=== PATIENT | male | born 1930 | race Caucasian/White ===

== ENCOUNTER → 2016-03-06 | Outpatient (CLI) | payer OTHER, MEDICARE | LOC: BHCLAF 11:30 | PROVIDERS: ATTEND Internal Medicine Cardiovascular Disease | DX: I42.9 Cardiomyopathy, unspecified (principal); R60.9 Edema, unspecified | CPT/HCPCS: 93306-PO ==

== ENCOUNTER → 2017-03-09 | Outpatient (CLI) | payer OTHER, MEDICARE | LOC: BHCLAF 10:00 | PROVIDERS: ATTEND Internal Medicine Cardiovascular Disease | DX: I48.91 Unspecified atrial fibrillation (principal); I35.9 Nonrheumatic aortic valve disorder, unspecified; I05.9 Rheumatic mitral valve disease, unspecified | CPT/HCPCS: 93306-PO ==

== ENCOUNTER → 2017-03-27 | Outpatient (CLI) | payer OTHER, MEDICARE | LOC: BHLMT 08:30 | PROVIDERS: ATTEND Internal Medicine Cardiovascular Disease | DX: I42.9 Cardiomyopathy, unspecified (principal); I48.0 Paroxysmal atrial fibrillation; R06.00 Dyspnea, unspecified | CPT/HCPCS: 78452; 93017; A9500; J2785 ==

== ENCOUNTER → 2017-05-10 | Outpatient (CLI) | payer OTHER, MEDICARE ==
[~2017-05-10] MED LIST: IOPAMIDOL (ISOVUE 370) 100 ML BTL IV ONE; IOPAMIDOL (ISOVUE-370) 150 ML BTL IV ONE; LIDOCAINE 1% 300 MG/30 ML SDV ONE
== END ==
LOC: FIMAGING 10:18
PROVIDERS: ATTEND Orthopaedic Surgery Hand Surgery
PROC: 3E0U3KZ Introduction of Other Diagnostic Substance into Joints, Percutaneous Approach (ICD-10-PCS; principal; 2017-05-10)
DX: M19.011 Primary osteoarthritis, right shoulder (principal); I50.9 Heart failure, unspecified; Z95.0 Presence of cardiac pacemaker
CPT/HCPCS: 23350; 73040; 73201; Q9967

== ENCOUNTER 2017-06-01 08:57 | Day surgery (SDC) | payer OTHER, MEDICARE ==
[2017-06-01] MEDS ORDERED: NS 1,000 ML IV ONE (08:59)
[2017-06-01] MEDS ORDERED: diphenhydrAMINE 25 MG CAP PO ONE (08:59)
[2017-06-01] MEDS ORDERED: FAMOTIDINE 20 MG TAB PO ONE (08:59)
[2017-06-01] MEDS ORDERED: ASPIRIN EC 325 MG TAB PO ONE (08:59)
[2017-06-01] MEDS ORDERED: DIAZEPAM 5 MG TAB PO ONE (08:59)
--- NOTE | 2017-06-01 09:22 | CPEKG ---
Heart Rate: 75 RR Interval: 800 P-R Interval: 164 QRSD Interval: 130 QT Interval: 484 QTC Interval: 541 P [place]: 0 QRS [place]: -24 T Wave [place]: 167 EKG Severity - ABNORMAL ECG - EKG Impression: ATRIAL-VENTRICULAR DUAL-PACED COMPLEXES EKG Impression: LVH WITH IVCD AND SECONDARY REPOL ABNRM Electronically Signed By: Maroc Roberts 01-Jun-2017 14:18:49
[2017-06-01 09:57] LABS: PLATELET COUNT 227 10^3/uL (150-400)
[2017-06-01 10:18] LABS: INR 1.45 (0.83-1.16); PROTIME(PATIENT) 17.8 SEC (12.0-15.0)
[2017-06-01] MEDS ORDERED: LIDOCAINE 1% 300 MG/30 ML SDV ONE (10:44)
[2017-06-01] MEDS ORDERED: IOPAMIDOL (ISOVUE-370) 150 ML BTL IV ONE (10:44)
--- NOTE | 2017-06-01 10:56 | PDPROPOC ---
Sedation Plan of Care Sedation Plan of Care: vital signs stable, mental status noted, patient educated of risks, benefits, alternatives, patient can tolerate sedation ASA Classification: ASA 2 Planned drugs: fentanyl, midazolam Mallampati Score: Class 2 Mallampati Reference Image: Patient passed 3-3-2 rule?: Yes
--- NOTE | 2017-06-01 10:59 | PDGENHP ---
History & Physical Chief Complaint: dyspnea concerning for an anginal equivelent History of Present Illness: Pt is an 87 yo, m who presents with OBRIEN concerning for an anginal equivelent. He has known CAD and an abnormal stress test. Pertinent Past, Social, Family History: No smoking Relevant Physical Exam: RRR, S1, S2, Systolic murmur c/w MR. CTA. mild lower extremity edema Cardiorespiratory Assessment: Pt has known CAD and is s/p PCI of his LAD and RCA. He presents with OBRIEN concerning for angina and an abnormal stress test.
[2017-06-01] MEDS ORDERED: MIDAZOLAM 2 MG/2 ML VIAL ONE (11:15)
[2017-06-01] MEDS ORDERED: fentaNYL 100 MCG/2 ML INJ ONE (11:15)
[2017-06-01] MEDS ORDERED: NITROGLYCERIN 0.4 MG BTL SL PRN (11:54)
[2017-06-01] MEDS ORDERED: ATROPINE SULFATE 1 MG/10 ML SYR IVP PRN (11:54)
[2017-06-01] MEDS ORDERED: ONDANSETRON 4 MG/2 ML VIAL IVP PRN (11:54)
--- NOTE | 2017-06-01 12:52 | CPIP ---
[f rep st] INVASIVE CARDIAC PROCEDURE DATE OF PROCEDURE: 06/01/2017 PROCEDURE: 1. Coronary angiography. 2. Left ventriculography. INDICATION: 1. Known coronary artery disease status post stenting of the left anterior descending coronary arter y and right coronary artery. 2. Dyspnea on exertion, concerning for an anginal equivalent. 3. Nondiagnostic stress test with inferior artifact. ACCESS: The patient was prepped and draped in sterile fashion. 1% lidocaine was used to anesthetize the right inguinal region. A 6-Fijian introducer sheath was placed selectively into the right commo n femoral artery via modified Seldinger technique. CORONARY ANGIOGRAPHY: A 6-Fijian JL4 was advanced to the left main coronary artery and images obtain ed. The left main coronary artery bifurcated into an LAD and circumflex coronary arteries. The left main coronary artery had a proximal 25% stenosis present. The left anterior descending coronary art eda was previously stented in the mid segment. The previously placed stent had mild ISR with no sten osis greater than 10% to 15%. In the mid to distal vessel, there was a long segmental 40% stenosis p resent. The left anterior descending coronary artery gave rise to 2 prominent diagonal branches. Th e diagonal branches were free of any significant disease. The circumflex coronary artery was a large vessel but was nondominant. Circumflex coronary artery had a single discrete 40% stenosis in the mi d vessel. The circumflex coronary artery gave rise to several OM branches. The first OM branch was a large branching vessel. The first OM branch had a proximal 30% stenosis present. A 6-Fijian JR4 w as advanced to the right coronary artery and images obtained. The right coronary artery had mild dif fuse disease throughout. In the mid vessel, a previously placed stent could be seen. The previously placed stent was patent with approximately 20% ISR. The right posterolateral branch had a proximal to mid 40% to 50% stenosis present. LEFT VENTRICULOGRAPHY: A 6-Fijian pigtail catheter was advanced in the left ventricle and images obt ained. Left ventricle appeared mildly dilated in size. The ejection fraction was normal at 55%. Th e left ventricular end-diastolic pressure was elevated at 23 mmHg. COMPLICATIONS: None. CONCLUSIONS: 1. Patent left anterior descending and right coronary artery stents. 2. Iocj-ry-imyymrzx coronary artery disease without flow limitation. 3. Normal left ventricular systolic function with elevated left ventricular end-diastolic pressure. PLAN: Medical management. /[id number]/MODL
== END 2017-06-01 14:51 | disposition home or self-care (01) ==
LOC: FCATH 08:57
PROVIDERS: ATTEND Internal Medicine Cardiovascular Disease
PROC: B2111ZZ Fluoroscopy of Multiple Coronary Arteries using Low Osmolar Contrast (ICD-10-PCS; principal; 2017-06-01)
DX: I25.119 Atherosclerotic heart disease of native coronary artery with unspecified angina pectoris (principal); Z95.5 Presence of coronary angioplasty implant and graft
CPT/HCPCS: C1760; J1644; J2250; J3010; Q9967

== ENCOUNTER 2018-05-17 06:49 | Day surgery (SDC) | payer OTHER, MEDICARE ==
[2018-05-17] MEDS ORDERED: fentaNYL 100 MCG/2 ML INJ IVP ONE (06:52)
[2018-05-17] MEDS ORDERED: BENZOCAINE UNIT DOSE SPRAY HURRICAINE MM ONE (06:52)
[2018-05-17] MEDS ORDERED: NS 500 ML IV ONE (06:52)
[2018-05-17] MEDS ORDERED: MIDAZOLAM 2 MG/2 ML VIAL IVP ONE (06:52)
[2018-05-17] MEDS ORDERED: ATROPINE SULFATE 1 MG/10 ML SYR IVP ONE (06:52)
[2018-05-17 07:39] LABS: INR 2.11 (0.83-1.16); PROTIME(PATIENT) 22.6 SEC (12.0-15.0)
--- NOTE | 2018-05-17 08:26 | PDPROPOC ---
Sedation Plan of Care Sedation Plan of Care: mental status noted, patient educated of risks, benefits , alternatives, patient can tolerate sedation ASA Classification: ASA 3 Planned drugs: other Mallampati Score: Class 3 Mallampati Reference Image: Patient passed 3-3-2 rule?: Yes
--- NOTE | 2018-05-17 08:26 | PDHPUP ---
History & Physical Update H&P update statement: This history and physical update is based on an assessment of the patient which was completed after admission or registration (within 24 hours), but prior to the surgery/procedure. H&P update: H&P reviewed & patient examined, no change in patient's condition since H&P completed (OBRIEN at 4 blocks. No CP or syncope.)
--- NOTE | 2018-05-17 08:31 | PDANEPAE ---
ANE History of Present Illness here for ROSEMARY/CV ANE Past Medical History - Cardiovascular History Hx Hypertension: Yes Hx Arrhythmias: Yes Hx Chest Pain: No Hx Coronary Artery / Peripheral Vascular Disease: Yes Hx CHF / Valvular Disease: No Hx Palpitations: No - Pulmonary History Hx COPD: No Hx Asthma/Reactive Airway Disease: No Hx Recent Upper Respiratory Infection: No Hx Oxygen in Use at Home: No Hx Sleep Apnea: No - Neurologic History Hx Cerebrovascular Accident: No Hx Seizures: No - Endocrine History Hx Diabetes: No Hypothyroid: No Hyperthyroid: No Obesity: no - Liver History Hx Hepatic Disorders: No ANE Review of Systems Review of systems is: negative Review of Systems: - Exercise capacity Exercise capacity: <4 METS ANE Patient History - Allergies Allergies/Adverse Reactions: No Known Allergies Allergy (Unverified 03/04/11 13:24) - Home Medications Home medications: home medication list seen and reviewed Home Medications: Aspirin [Aspirin 81mg (*)] 81 mg PO DAILY 06/25/13 [Last Taken 05/17/18] Omeprazole [Prilosec 20 mg] 20 mg PO DAILY 06/25/13 [Last Taken 05/17/18] Simvastatin 40 mg PO DAILY18 06/25/13 [Last Taken 05/16/18] Warfarin Sodium [Coumadin 5MG (*)] 5 mg PO SUTUTHSA@16 06/25/13 [Last Taken ] C/E/Zn/Cu/OM3/DHA/EPA/LUT/ZEAX [Preservision Areds 2 Softgel] 1 each PO DAILY [Last Taken 05/16/18] Furosemide [Lasix 20 MG (*)] 20 mg PO DAILY 05/25/17 [Last Taken 05/16/18] Warfarin Sodium [Coumadin 7.5MG (*)] 7.5 mg PO MWF@16 05/25/17 [Last Taken 05/28 16:00] - NPO status NPO Status: no food or drink >8 hours - Smoking Hx Smoking Status: Never smoked ANE Labs/Vital Signs - Labs Result Diagrams: 05/17/18 07:15 - Vital Signs Height: 183 cm Weight: 88.5 kg ANE Physical Exam - Airway Neck exam: FROM Mallampati Score: Class 1 - Pulmonary Pulmonary: no respiratory distress - Cardiovascular Cardiovascular: irregularly irregular - ASA Status ASA Status: III ANE Anesthesia Plan Anesthesia Plan: GA with mask
[2018-05-17] MEDS ORDERED: PROPOFOL/EMULSION 500 MG/50 ML BOTTLE IV ONE (08:36)
--- NOTE | 2018-05-17 09:02 | PDTEE1 ---
ROSEMARY Cardioversion Procedure Procedure: electrical cardioversion, transesophageal echo Indications: atrial fibrillation Consent: signed and in chart Anticoagulation: warfarin Procedural Details: Pads were placed in anterior-posterior position. ROSEMARY probe was advanced and standard images obtained. There is no evidence of left atrial or left atrial appendage thrombus. Synchronized cardioversion attempt #1: other (250 synchronized joules) Results: normal sinus rhythm Conclusions: successful ROSEMARY cardioversion Patient Problems: Problems Problem Status Onset Cardiomyopathy Acute Complete heart block Acute Heart block Acute
--- NOTE | 2018-05-17 09:09 | POSTANESTH ---
Post Anesthetic Evaluation Cardiovascular Status: Normal, Stable Respiratory Status: Normal, Stable Level of Consciousness/Mental Status: Can Participate in Eval Pain Control: Adequate, Prn Tx Ordered Nausea/Vomiting Control: Adequate, Prn Tx Ordered Complications Possibly Related to Anesthesia: None Noted
--- NOTE | 2018-05-17 10:16 | CPR ---
[f rep st] NONINVASIVE CARDIAC PROCEDURE REPORT DATE OF PROCEDURE: 05/17/2018 PROCEDURE PERFORMED: Electrical cardioversion. INDICATIONS: Atrial fibrillation with diastolic heart failure and fatigue and shortness of breath. CONSENT: Signed. Risks, benefits, and alternatives discussed with patient and his . He wishes to proceed. TECHNICAL DIFFICULTIES: None. MEDICATIONS USED: Propofol 150 mg IV per Anesthesia Service in conjunction with transesophageal echo immediately beforehand which demonstrated no evidence of cardiac thrombus. DESCRIPTION OF PROCEDURE AND RESULTS: The patient has a pacemaker chronically. His initial rhythm w as paced at 70 beats per minute with a blood pressure of 120/70. The pacemaker rep was here and inte rrogated his rhythm beforehand and he was in atrial fibrillation. With adequate sedation, he receive d a 250 joule synchronized shock with AP pads. This converted him into a paced rhythm at 67 beats pe r minute with a blood pressure of 93/59. Interrogation of the pacemaker showed he was now in sinus r hythm. He awoke from sedation with no new neurological deficits. FINAL IMPRESSIONS: 1. Successful cardioversion of atrial fibrillation to sinus rhythm with a single 250 joule synchroni zed shock. 2. Patient looks like he has diuresed quite a bit and might be a little prerenal now. Will decrease his Lasix to 60 mg q.a.m. with no afternoon dose. 3. Rest of medications without change. 4. He is scheduled to see his long-term clinic brick carrier, Pablo Mariscal MD, next Sunday. COMPLICATIONS: None. /[id number]/MODL
--- NOTE | 2018-05-17 11:47 | ECHO ---
[email or web address] [email or web address] [id number] Main: [phone] Echocardiography Examination Transesophageal Name: JERRICA CURTIS MR#: [id number] Study Date: 05/17/2018 Study Time: 08:00 AM Date of : 1930 Age: 88 year(s) Height: ( ) Weight: ( ) BSA: Gender: Male Examination: ROSEMARY Contrast: Image Quality: Adequate Rhythm: Heart Rate: BP: / Indication: Eval STAN Pre Cardioversion Procedure Staff Referring Physician: Manager Furniture: Marian Brown RDCS Reading Physician: Jaguar Del Castillo MD Requesting Provider: Ordering Physician: Jaguar Del Castillo MD Indication: Eval STAN Pre Cardioversion Acute complication: None Measurements Chambers TV/PV Label Value Normal Value Label Value Normal Value EF lower range (%) 50 % RA Pressure 5 mmHg EF upper range (%) 55 % RVSP 29 mmHg Additional Vessels TR Pmax 24 mmHg Label Value Normal Value AoAsc 3.3 cm Conclusions Left Ventricle: ROSEMARY CONCLUSIONS:1)Normal LV size and systolic function with a LVEF of 50-55%.2)Pacer wires in right heart chambers.3)No clot seen in any of four cardiac chambers or left atrial appendage. PW velocity in STAN 35cm/sec.4)Aortic valve sclerosis without . Mild AI noted.5)Mild to moderate MR without MV prolapse.6)Mild to moderate TR with estimated normal PA pressures.7)Normal size thoracic aorta with mild plaque and no dissection flap.8)Negative IV bubble study for ASD or PFO. Findings Patient: JERRICA CURTIS Study Date: 05/17/2018 Page 1 of 2 08:00 AM Left Ventricle: ROSEMARY CONCLUSIONS: 1)Normal LV size and systolic function with a LVEF of 50-55%. 2)Pacer wires in right heart chambers. 3)No clot seen in any of four cardiac chambers or left atrial appendage. PW velocity in STAN 35cm/sec. 4)Aortic valve sclerosis without . Mild AI noted. 5)Mild to moderate MR without MV prolapse. 6)Mild to moderate TR with estimated normal PA pressures. 7)Normal size thoracic aorta with mild plaque and no dissection flap. 8)Negative IV bubble study for ASD or PFO. Right Ventricle: There is a pacing wire present in the right ventricle. Left Atrium Appendage: Good color flow doppler in the left atrial appendage. No thrombus is identified. IAS: An agitated saline study was performed and was negative for intracardiac shunting. Mitral Valve: Mitral valve appears structurally normal. Mild to moderate mitral regurgitation. Aortic Valve: Mild aortic regurgitation is present. Aortic leaflets exhibit mild calcification. Tricuspid Valve: Tricuspid valve leaflets are structurally normal. Mild to moderate tricuspid regurgitation. Right Ventricular systolic pressure is measured at 29 mmHg. Pulmonic Valve: Pulmonic leaflets are structurally normal. Trivial pulmonic valve regurgitation is present. Aorta: The ascending aorta measures 3.3 cm. Mild atheroma in the descending aorta. Exam Details Procedure Ordered: ROSEMARY Procedure Status: Routine study Image Quality: Adequate Consent: Risks, alternatives of procedure explained to patient, informed consent obtained Probe Insertion: Attending disk recordist Facility Location: Cardiac Echo 1 (No Signature Object) Patient: JERRICA CURTIS Study Date: 05/17/2018 Page 2 of 2 08:00 AM [id number]
--- NOTE | 2018-05-23 08:42 | CPEKG ---
Test Reason : OPEN Blood Pressure : / mmHG Vent. Rate : 069 BPM Atrial Rate : 000 BPM P-R Int : 077 ms QRS Dur : 130 ms QT Int : 458 ms P-R-T Axes : 000 244 077 degrees QTc Int : 491 ms Ventricular-paced complexes AV pacing was noted on prior ECG Confirmed by Pablo Salas ([id number]) on 05/23/2018 8:42:07 AM Referred By: Jaguar Del Castillo Confirmed By:Pablo Salas
== END 2018-05-17 10:00 | disposition home or self-care (01) ==
LOC: FCATH 06:49
PROVIDERS: ATTEND Internal Medicine Cardiovascular Disease
PROC: 5A2204Z Restoration of Cardiac Rhythm, Single (ICD-10-PCS; principal; 2018-05-17)
PROC: B245ZZ4 Ultrasonography of Left Heart, Transesophageal (ICD-10-PCS; principal; 2018-05-17)
DX: I48.0 Paroxysmal atrial fibrillation (principal); I25.10 Atherosclerotic heart disease of native coronary artery without angina pectoris; I10 Essential (primary) hypertension; E78.5 Hyperlipidemia, unspecified; I42.8 Other cardiomyopathies; E11.9 Type 2 diabetes mellitus without complications; Z95.1 Presence of aortocoronary bypass graft; Z95.5 Presence of coronary angioplasty implant and graft
CPT/HCPCS: J0461; J2704

== ENCOUNTER 2018-05-23 11:40 | Inpatient (IN) | payer OTHER, MEDICARE ==
[2018-05-23] MEDS ORDERED: ACETAMINOPHEN 325 MG TAB PO PRN (16:32)
[2018-05-23 17:11] LABS: PLATELET COUNT 289 10^3/uL (150-400)
[2018-05-23 17:20] LABS: INR 2.47 (0.83-1.16); PROTIME(PATIENT) 25.5 SEC (12.0-15.0)
--- NOTE | 2018-05-23 17:20 | PDCARPN ---
Cardiology Progress Note Chief Complaint: Patient reporting here for sotalol loading. Assessment/Plan: Assessment: Please see Dr. Mariscal office note dated 05/22/2018, this is to be used as patient 's official history and physical. 88-year-old male with significant past history that includes CAD with previous PCI of the LAD and RCA, hypertension, hyperlipidemia, nonischemic cardiomyopathy which has normalized with implantation of a Bi V PPM, persistent atrial fibrillation, AI and MR. Recently seen in our office for diastolic heart failure, and found to be in atrial fibrillation. Started on high-dose diuretics, with 20 lb weight loss. Echocardiogram done on 05/14/2018 noting LVEF of 55% with mild LVH, mild RV dilation, moderate left atrial enlargement and mild right atrial enlargement, keqw-mn-pqjjsjta MR with mild MAC, mild aortic insufficiency with mild stenosis and moderate sclerosis. Xbiy-fs-hcvplmfo TR, mild PI, mild dilated ascending aorta at 4.0 cm. Patient underwent ROSEMARY cardioversion on 05/17/2018. Pacemaker interrogation on 05/19/2018 demonstrating patient back in atrial fibrillation. Concerning that potential atrial fibrillation led to his diastolic heart failure , patient is being admitted for sotalol loading. Plan: 1. Persistent atrial fibrillation: Status post cardioversion that lasted for 2 days with reversion back into AFib, rate controlled on no AV jayesh agent. Potential causes of diastolic heart failure. Will plan for patient to start sotalol loading. Electrocardiogram today showing underlying rhythm of atrial fibrillation with ventricular paced beat. Occasional PVC. JT interval 280 milliseconds with a JT I of 90. Plan on starting sotalol at 80 mg p.o. Twice daily. 2 hr post dosing electrocardiograms to be done. Patient to be placed on continuous cardiac monitoring to evaluate for any malignant arrhythmias with medication introduction. If patient does not convert to sinus rhythm after 4th dose, will plan on patient having repeat cardioversion. Patient remains on anticoagulation of warfarin. 2. Coronary artery disease: Patient reports no chest pain pressure or symptoms suggesting of ischemia. Patient remains on anti-platelet therapy of aspirin, secondary risk prevention with statin therapy. 3. Diastolic heart failure: Patient recently had increase of diuretic therapy with 20 lb weight loss. He appears euvolemic on physical examination. Continue on current diuretic therapy. 4. Hyperlipidemia: Resume patient's home statin dosage. 5. Valvular heart disease: Recent echocardiogram noting moderate MR and mild AI. Patient will have a repeated echocardiogram as an outpatient 04/2019. 6. Dilated ascending aorta, measuring at 4.0 cm, repeat echocardiogram 05/15 for therapeutic monitoring. 7. Hypertension: Blood pressure appears to be well controlled on current medication regime, continue home medications. Monitor adjust as necessary 8. DVT prophylaxis: Patient is on full anticoagulation Liborio hoses have been ordered. 9. Advance directive: Patient reports he is a full code. Due to patient's significant medical history, potential risk of arrhythmias with institution of sotalol, will plan for patient to be monitor over the next 48 hr, greater than 2 midnight stays. 05/23/18 17:18 Subjective: Patient reports no chest pain, pressure, shortness of breath, lightheadedness, palpitations, near-syncope or syncopal events. Reviewed/Discussed With: other (Dr. Mariscal, Dr Hyatt) Objective: Vital Signs (8 Hrs) Temp Pulse Resp BP Pulse Ox 05/23/18 16:38 36.6 C 69 11 L 123/70 H 96 Intake/Output (24 Hrs) 05/22/18 05/23/18 05/24/18 05:59 05:59 05:59 Other: Weight 86.4 kg Result Diagrams: 05/23/18 16:55 05/23/18 16:55 - Physical Exam Constitutional: WDWN, healthy appearing Cardiovascular: regular rate and rhythm, systolic murmur (2/6 left sternal border), pulses symmetric bilat, No jugular vein distention, No carotid bruit Peripheral Pulses: 1+: dorsalis-pedis (R), dorsalis-pedis (L), 2+: carotid (R), carotid (L) Respiratory: clear to auscultate bilat, no crackles, no wheezes Gastrointestinal: normoactive bowel sounds, no tenderness, no masses Skin: warm, no edema Neurologic: AAOx3 Psychiatric: cooperative, interactive, following commands ICD10 Worksheet Patient Problems: Problems Problem Status Onset Cardiomyopathy Acute Complete heart block Acute Heart block Acute
[2018-05-23] MEDS ORDERED: MAGNESIUM SULF 1 GM/DEXTROSE 100 ML IV ONE (17:47)
[2018-05-23] MEDS: WARFARIN SODIUM 5 MG TAB PO SCH (18:26)
[2018-05-23] MEDS: ATORVASTATIN CALCIUM 20 MG TAB PO SCH (18:27)
[2018-05-23] MEDS: SOTALOL HCL 80 MG TAB PO SCH (20:49)
[2018-05-24 08:25] LABS: INR 2.53 (0.83-1.16)
[2018-05-24] MEDS ORDERED: ASPIRIN 81 MG CHEWABLE TAB PO SCH (09:00)
[2018-05-24] MEDS ORDERED: FUROSEMIDE 20 MG TAB PO SCH (09:00)
[2018-05-24] MEDS: PANTOPRAZOLE SODIUM 40 MG TAB PO SCH (09:26)
[2018-05-24] MEDS: FUROSEMIDE 20 MG TAB PO SCH (09:26)
[2018-05-24] MEDS: SOTALOL HCL 80 MG TAB PO SCH ×2 (09:27→20:15)
--- NOTE | 2018-05-24 12:07 | PDMN ---
Medical Necessity Medical necessity: Pt meets IP criteria per [employer] & MCG M-505; est los >2 mn for eval/tx of persistent AFIB; admit for Sotalol loading w/continuous cardiac monitoring; comorbid advanced age, diastolic heart failure; per progress note & order 05/23/18
[2018-05-24] MEDS ORDERED: FERROUS SULFATE 325 MG TAB PO SCH (12:45)
--- NOTE | 2018-05-24 12:52 | PDHOSCONS ---
History and Physical - Chief Complaint asked by Cardiology service to see this patient with anemia - History of Present Illness This patient was sent for admission by Dr. Mariscal because persistent atrial fibrillation with known coronary disease and valvular disease. There is concern that his heart failure may be due to the AFib and he is in the hospital for sotalol loading. We are asked to see the patient because of anemia. He has Hg 8 MCV 60s, and high RDW, with RBC 4. The microcytosis and high RDW are new since a year ago. He has noted no significant bleeding. He has a colonoscopy for screening ( negative) 6-8 yrs ago w [facility]. No sxs of malabsorption or other sxs of celiac disease. No abd pain or constipation. He is not a blood donor. Had a leg fx 2 yrs ago, no surgery since then. No family hx of malignancy He does note fatigue, mild exertional dyspnea was noted during recent CHF episode better now. He has some orthostasis sxs' present at least a year. He does have a hx of falls with fractures (leg 2 yrs ago, ribs 2.5 yrs ago) History Information - Allergies/Home Medication List Allergies/Adverse Reactions: No Known Allergies Allergy (Unverified 03/04/11 13:24) Home Medications: Aspirin [Aspirin 81mg (*)] 81 mg PO DAILY 06/25/13 [Last Taken 05/23/18] Omeprazole [Prilosec 20 mg] 20 mg PO DAILY 06/25/13 [Last Taken 05/23/18] Simvastatin 40 mg PO DAILY18 06/25/13 [Last Taken 05/22/18] Warfarin Sodium [Coumadin 5MG (*)] 5 mg PO DAILY@18 06/25/13 [Last Taken ] Furosemide [Lasix 20 MG (*)] 40 mg PO DAILY 05/25/17 [Last Taken 05/23/18] Herbals/Supplements -Info Only 1 ea PO DAILY 05/23/18 [Last Taken 05/23/18] I have personally reviewed and updated: family history, medical history, social history, surgical history - Past Medical History atrial fibrillation, coronary artery disease (Stents to right and left anterior descending arteries), CHF (Diastolic) Additional medical history: Mitral regurgitation, tricuspid regurgitation, aortic insufficiency and mild stenosis, nonischemic diastolic heart failure, hypertension, hyperlipidemia, BiV-pacemaker implantation, hyperlipidemia, 4 cm ascending aorta, diabetes mellitus type 2, melanoma, - Family History Positive for: diabetes type II, CAD, hypertension ( lives with his ) - Social History Smoking Status: Never smoked Drug Use: None Additional social history: lives w who is at bedside Review of Systems Review of Systems: ROS: 10pt was reviewed & negative except for what was stated in HPI & below Physical Exam Physical Exam: alert oriented relaxed skin a bit pale resps easy lungs clear heart irregular abd soft nondistended nontender no mass minimal bilateral ankle edema some vericose veins no signs of malnutrition mentation, speech normal iv site looks good Temp Pulse Resp BP Pulse Ox 36.4 C 76 12 113/52 L 98 05/24/18 10:58 05/24/18 10:58 05/24/18 10:58 05/24/18 10:58 05/24/18 10:58 Lab Data & Imaging Review 05/24/18 03:40 05/24/18 03:40 WBC 7.17 10^3/uL (3.80-9.50) 05/23/18 16:55 RBC 4.59 10^6/uL (4.40-6.38) 05/23/18 16:55 Hgb 8.5 g/dL (13.7-17.5) L 05/24/18 03:40 Hct 30.4 % (40.0-51.0) L 05/24/18 03:40 MCV 67.5 fL (81.5-99.8) L 05/23/18 16:55 MCH 19.0 pg (27.9-34.1) L 05/23/18 16:55 MCHC 28.1 g/dL (32.4-36.7) L 05/23/18 16:55 RDW 17.7 % (11.5-15.2) H 05/23/18 16:55 Plt Count 289 10^3/uL (150-400) 05/23/18 16:55 MPV 11.4 fL (8.7-11.7) 05/23/18 16:55 Neut % (Auto) 53.9 % (39.3-74.2) 05/23/18 16:55 Lymph % (Auto) 36.5 % (15.0-45.0) 05/23/18 16:55 [place] % (Auto) 7.0 % (4.5-13.0) 05/23/18 16:55 Eos % (Auto) 1.5 % (0.6-7.6) 05/23/18 16:55 Baso % (Auto) 0.8 % (0.3-1.7) 05/23/18 16:55 Nucleat RBC Rel Count 0.0 % (0.0-0.2) 05/23/18 16:55 Absolute Neuts (auto) 3.86 10^3/uL (1.70-6.50) 05/23/18 16:55 Absolute Lymphs (auto) 2.62 10^3/uL (1.00-3.00) 05/23/18 16:55 Absolute Monos (auto) 0.50 10^3/uL (0.30-0.80) 05/23/18 16:55 Absolute Eos (auto) 0.11 10^3/uL (0.03-0.40) 05/23/18 16:55 Absolute Basos (auto) 0.06 10^3/uL (0.02-0.10) 05/23/18 16:55 Absolute Nucleated RBC 0.00 10^3/uL (0-0.01) 05/23/18 16:55 Immature Gran % 0.3 % (0.0-1.1) 05/23/18 16:55 Immature Gran # 0.02 10^3/uL (0.00-0.10) 05/23/18 16:55 Platelet Estimate ADEQUATE (ADEQ) 05/23/18 16:55 Sickle Cells 1+ H 05/23/18 16:55 Elliptocytes 1+ H 05/23/18 16:55 Acanthocytes (Spur) 2+ H 05/23/18 16:55 Schistocytes 2+ H 05/23/18 16:55 Smear Review By Glenis ORTIZ MD 05/23/18 16:55 PT 26.0 SEC (12.0-15.0) H 05/24/18 08:05 INR 2.53 (0.83-1.16) H 05/24/18 08:05 APTT 35.0 SEC (23.0-38.0) 05/23/18 16:55 Sodium 136 mEq/L (135-145) 05/24/18 03:40 Potassium 4.4 mEq/L (3.5-5.2) 05/24/18 03:40 Chloride 102 mEq/L (97-110) 05/24/18 03:40 Carbon Dioxide 26 mEq/l (22-31) 05/24/18 03:40 Anion Gap 8 mEq/L (6-14) 05/24/18 03:40 BUN 31 mg/dL (7-23) H 05/24/18 03:40 Creatinine 1.4 mg/dL (0.7-1.3) H 05/24/18 03:40 Estimated GFR 48 05/24/18 03:40 Glucose 116 mg/dL (70-100) H 05/24/18 03:40 Calcium 9.1 mg/dL (8.5-10.4) 05/24/18 03:40 Magnesium 2.1 mg/dL (1.6-2.3) 05/24/18 03:40 Iron 23.0 mcg/dL (49.0-199.0) L 05/24/18 03:40 TIBC 429 ug/dL (260-490) 05/24/18 03:40 Iron Saturation 5 % (20-55) L 05/24/18 03:40 Ferritin 8.9 ng/mL (17.9-464.0) L 05/24/18 03:40 Assessment & Plan Assessment: IMPRESSION: * Microcytic anemia with Severe Iron Deficiency -cause unknown, last colon 6-8 yrs ago?, never had egd; likely gi bleed, no sx's to suggest malapsorption -notably smear with some schistocytes and arlene cells - hemolysis seems quite unlikely but will test for evidence of that * atrial fibrillation -in for sotalol/cardioversion; on therapeutic coumadin * Acute Kidney Injury -? role of recent aggressive diuresis in that * diastolic heart CHF -currently compensated but just recently had decompensation was diuresed 18 lbs as an outpt * moderate valvular heart disese * DM2, not currently on treatment, current glucose 160s -should likely be on tx but will test further * osteoporosis by definition, with fractures * gait instability with some orthostatic sxs I have reviewed in detail with Elías Drake and Dr Montbriand RECOMMENDATIONS: * iv iron therapy here, send home on po, close f/u of iron levels and anemia * continue anticoagulation for now * cardioversion in am * plan EGD on two days, so npo after midnight again tomorrow * if needs colonoscopy will need to delay that as needs anticoag 30 days after CVersion * I have ordered labs to rule out hemolysis * HgA1c, decide on starting treatment of DM partly based on that * fall risk precautions * he should be evaluated for osteoporosis in the outpt setting and aggressively treated
--- NOTE | 2018-05-24 13:06 | PDCARPN ---
Cardiology Progress Note Chief Complaint: Patient reports no complaints. Assessment/Plan: Assessment: Please see Dr. Mariscal office note dated 05/22/2018, this is to be used as patient 's official history and physical. 88-year-old male with significant past history that includes CAD with previous PCI of the LAD and RCA, hypertension, hyperlipidemia, nonischemic cardiomyopathy which has normalized with implantation of a Bi V PPM, persistent atrial fibrillation, AI and MR. Recently seen in our office for diastolic heart failure, and found to be in atrial fibrillation. Started on high-dose diuretics, with 20 lb weight loss. Echocardiogram done on 05/14/2018 noting LVEF of 55% with mild LVH, mild RV dilation, moderate left atrial enlargement and mild right atrial enlargement, [id number] MR with mild MAC, mild aortic insufficiency with mild stenosis and moderate sclerosis. [id number] TR, mild PI, mild dilated ascending aorta at 4.0 cm. Patient underwent RO[facility]ARY cardioversion on 05/17/2018. Pacemaker interrogation on 05/19/2018 demonstrating patient back in atrial fibrillation. Concerning that potential atrial fibrillation led to his diastolic heart failure , patient is being admitted for sotalol loading. 05/24/2018: Patient reports no chest pain pressure symptoms suggesting of ischemia. Reports no palpitations. Denies of any shortness of breath. Continues cardiac monitoring showing underlying atrial fibrillation with ventricular paced beats. Occasional bigeminal premature ventricular contractions, no VT. No malignant arrhythmias. JT off of 11:00 p.m. EKG last evening was 280 milliseconds, JT I was 130. On admission, hemoglobin 8.7, hematocrit 31.0, MCV 67.5. Repeated this morning hemoglobin 8.5, hematocrit 30.4. Last recorded H&H was May of 2017 showing hemoglobin of 10.6 hematocrit of 35.0. Patient denies of any bleeding issues, currently on both anti-platelet therapy of aspirin and warfarin. INR therapeutic today at 2.53. Iron study done showing iron of 23.0, TIBC 429, iron saturation 57, ferritin 8.9. Plan: 1. Persistent atrial fibrillation: Patient continues to be in atrial fibrillation. Recent cardioversion with successful transition back into sinus for 2 days, unfortunately converted back to AFib. Rate controlled. JT I within normal limits. Continue on 80 mg of sotalol twice daily. Plan cardioversion tomorrow with Dr. Gannon. anesthesia has been notified. [employer] pacemaker rep also notified. INRs within normal limits. Continue to monitor. 2. Coronary artery disease: Patient reports no chest pain pressure or symptoms suggesting of ischemia. Do anemia, will hold aspirin therapy. Secondary risk prevention with statin therapy. 3. Diastolic heart failure: Patient recently had increase of diuretic therapy with 20 lb weight loss. He appears euvolemic on physical examination. creatinine higher than baseline, will reduce Lasix dose back to 20 mg p.o. q.day. 4. Iron deficient anemia: MCV 67, iron 23, ferritin 8.9. Patient denies of any obvious bleeding. Hemoccult stools x3 ordered. Started on ferrous sulfate. Have asked hospitalists for consultation. 4. Hyperlipidemia: Resume patient's home statin dosage. 5. Valvular heart disease: Recent echocardiogram noting moderate MR and mild AI. Patient will have a repeated echocardiogram as an outpatient 04/2019. 6. Dilated ascending aorta, measuring at 4.0 cm, repeat echocardiogram 05/15 for therapeutic monitoring. 7. Hypertension: Blood pressure appears to be well controlled on current medication regime, continue home medications. Monitor adjust as necessary 8. DVT prophylaxis: Patient is on full anticoagulation Liborio hoses have been ordered. 9. Advance directive: Patient reports he is a full code. Due to patient's significant medical history, potential risk of arrhythmias with institution of sotalol, will plan for patient to be monitor over the next 48 hr, greater than 2 midnight stays. 05/24/18 13:07 Subjective: Patient denies of any chest pressure, pain, shortness of breath, lightheadedness, palpitations, near-syncope or syncopal events. Reviewed/Discussed With: hospitalist (Marlin Alexander NP), other (Dr Gannon) Objective: Vital Signs (8 Hrs) Temp Pulse Resp BP Pulse Ox 05/24/18 10:58 36.4 C 76 12 113/52 L 98 05/24/18 09:27 77 118/49 L 05/24/18 07:18 36.6 C 77 11 L 102/55 L 98 Intake/Output (24 Hrs) 05/23/18 05/24/18 05/25/18 05:59 05:59 05:59 Intake Total 1500 Output Total 1 Balance 1499 Intake: Oral (ml) 1400 IV Infused (ml) 100 Magnesium Sulf 1 gm/ 100 Dextrose 100 ml @ 100 mls /hr IV ONCE ONE Rx#: [id number] Output: Urine (ml) 1 Toilet 1 Other: Weight 86.4 kg Number of Voids Toilet 1 Result Diagrams: 05/24/18 03:40 05/24/18 03:40 - Physical Exam Constitutional: WDWN, no apparent distress Ears, Nose, Mouth, Throat: moist mucous membranes Cardiovascular: regular rate and rhythm, systolic murmur ( 2/6 left sternal border), pulses symmetric bilat, No jugular vein distention Peripheral Pulses: 2+: carotid (R), carotid (L), dorsalis-pedis (R), dorsalis- pedis (L) Respiratory: clear to auscultate bilat, no crackles, no wheezes Gastrointestinal: normoactive bowel sounds Skin: warm, no edema Neurologic: AAOx3 Psychiatric: cooperative, interactive ICD10 Worksheet Patient Problems: Problems Problem Status Onset Cardiomyopathy Acute Complete heart block Acute Heart block Acute
[2018-05-24 13:38] LABS: CREATINE KINASE < 20 IU/L (0-224)
--- NOTE | 2018-05-24 14:18 | ASMTCMCOM ---
CM Note CM Note Notes: Spoke with pt and of 55 years in the room. Pt admitted for persistent a Fib and Sotolol load observation. Pt will likely discharge independently and he and are comfortable with this plan. No therapies ordered at this time. CM to follow. d/c Plan: Independent Date Signed: 05/24/2018 02:17 PM Electronically Signed By:Fannie Khan
[2018-05-24] MEDS: SODIUM FERRIC GLUCONAT/SUCROSE 125 MG in NS 100 ML IV SCH (14:32)
[2018-05-24] MEDS: WARFARIN SODIUM 5 MG TAB PO SCH (17:12)
[2018-05-24] MEDS: ATORVASTATIN CALCIUM 20 MG TAB PO SCH (17:12)
[2018-05-25 04:22] LABS: INR 2.74 (0.83-1.16); PROTIME(PATIENT) 27.6 SEC (12.0-15.0)
[2018-05-25] MEDS ORDERED: NS 1,000 ML IV ONE (06:00)
[2018-05-25] MEDS ORDERED: ATROPINE SULFATE 1 MG/10 ML SYR IVP ONE (06:00)
[2018-05-25] MEDS: PANTOPRAZOLE SODIUM 40 MG TAB PO SCH (07:40)
[2018-05-25] MEDS: SOTALOL HCL 80 MG TAB PO SCH ×2 (07:40→21:20)
--- NOTE | 2018-05-25 09:00 | GCON ---
[f rep st] CONSULTATION CHIEF COMPLAINT: An 88-year-old gentleman with congestive heart failure, valvular heart disease, per sistent atrial fib with iron-deficiency anemia. HISTORY OF PRESENT ILLNESS: This 88-year-old gentleman was admitted to the hospital by Cardiology fo r persistent atrial fibrillation in anticipation for cardioversion. He was given IV sotalol while in the hospital. He has been on anticoagulation with Coumadin. He has an elevated INR. He has a know n history of iron deficiency anemia. This has been worked up in the past. His most recent GI workup was in april of 2015. He underwent upper endoscopy and colonoscopy at that time. He had the findin g of left-sided diverticulosis, a 2 mm sessile serrated adenoma in the ascending colon and a hyperpla stic rectal polyp. Upper endoscopy was remarkable for a short-segment Saucedo's esophagus. Otherwis e, no significant GI pathology was identified. No source of the patient's iron deficiency was identi fied at that time. Capsule endoscopy was not done as part of this workup. The patient is found agai n to be iron deficient with low MCV and low iron studies. The patient has had some shortness of michael th associated with congestive heart failure, but no other signs or symptoms of GI bleeding. He denie s any difficulty eating. He has no black or tarry stools. Denies any hematochezia or blood per rect um. Denies any abdominal pain or discomfort. He has had no significant change in bowel habits. He has no family history of colon cancer or colon polyps. His only significant history is cardiac. Ask ed to see patient for further evaluation of anemia. PAST MEDICAL HISTORY: Remarkable for atrial fibrillation, coronary artery disease status post cardia c stenting, left anterior descending arteries, diastolic congestive heart failure, history of mitral regurgitation, tricuspid regurgitation, aortic insufficiency and mild stenosis. He is reported to farias ve nonischemic diastolic heart failure, hypertension, hyperlipidemia. He has had a Biv pacemaker imp lantation, hyperlipidemia, diabetes mellitus types 2, and history of melanoma. FAMILY HISTORY: Remarkable for type 2 diabetes mellitus, coronary artery disease, hypertension. Oth erwise negative as it pertains to chief complaint. SOCIAL HISTORY: He is a nonsmoker. Lives with his . ALLERGIES: No known drug allergies. MEDICATIONS: Prior to admission include aspirin 81 mg p.o. daily, omeprazole 20 mg p.o. daily, simva statin 40 mg daily, warfarin, Lasix, and herbal supplements, REVIEW OF SYSTEMS: Negative 10 systems other than mentioned in the HPI. PHYSICAL EXAM: GENERAL: A very pleasant gentleman, no acute distress, sitting in a chair. VITAL SI GNS: 126/88, heart rate of 70, 36.5. HEENT: Normocephalic, atraumatic. EOMI. NECK: Supple. No cervical adenopathy, no thyromegaly. Mucous membranes moist. LUNGS: Clear. CARDIAC: Remarkable f or systolic murmur. Irregularly irregular. ABDOMEN: Soft, benign. No hepatosplenomegaly. EXTREMI TIES: Trace edema. NEURO: Nonfocal. SKIN: Warm, dry, intact. PSYCH: Alert and oriented x3 with normal affect. LABORATORY DATA: Hemoglobin of 8.7, hematocrit 31.0, MCV 67.5, platelets of 289. PT of 27.6 with an INR of 2.74. Serum chemistries: Serum sodium 137, potassium 4.1, chloride of 104, CO2 of 24, BUN o f 30 with a creatinine 1.4. IMPRESSION: An 88-year-old gentleman with history of diastolic congestive heart failure, valvular he art disease, coronary disease. Patient with persistent atrial fibrillation requiring anticoagulation . Cardiology anticipates cardioversion. This, however, will require at least a month of persistent uninterrupted anticoagulation. The patient has had a GI workup about 2 years ago. GI workup at that time was unrevealing. It is unlikely that he has developed significant colonic pathology since his last colonoscopy. Does have history of underlying Saucedo's esophagus. RECOMMENDATIONS: 1. Would probably defer cardioversion until GI workup. 2. Would hold Coumadin. 3. Proceed with diagnostic endoscopy with small bowel biopsies. 4. If upper endoscopy is unremarkable, would then recommend VCE/video capsule endoscopy. 5. Would not repeat colonoscopy at this time. We will follow with you. Thank you for allowing me t o participate in the care of this patient. /[id number]/MODL
[2018-05-25] MEDS ORDERED: PHYTONADIONE 10 MG in NS 50 ML IV ONE (09:54)
--- NOTE | 2018-05-25 10:01 | HOSPPROG ---
Hospitalist Progress Note Assessment/Plan: DIAGNOSES: * Microcytic anemia with Severe Iron Deficiency -last colonoscopy 2 yrs ago -notably smear with some schistocytes and arlene cells - hemolysis seems quite unlikely but will test for evidence of that * atrial fibrillation -in for sotalol/cardioversion; on therapeutic coumadin * Acute Kidney Injury -? role of recent aggressive diuresis in that * diastolic heart CHF -currently compensated but just recently had decompensation was diuresed 18 lbs as an outpt * moderate valvular heart disese * DM2, not currently on treatment, current glucose 160s -Hg A1c 7.6 * osteoporosis by definition, with fractures * gait instability with some orthostatic sxs PLANS: * iv iron therapy here, send home on po, close f/u of iron levels and anemia * After review with Cardiology and GI, we now know his last colonoscopy was just 2 years ago so will do EGD with biopsies to RO a negative planned outpatient capsule study * Discontinue Coumadin and give vitamin K before biopsy procedure tomorrow, changed to Eliquis upon discharge * cardioversion will be delayed at this point for GI workup * Waiting on haptoglobin level * With hemoglobin A1c at 7.6 there is at least moderate indication for resuming diabetes treatment for this patient; will follow his creatinine further before considering whether to start metformin or different medicine * fall risk precautions * he should be evaluated for osteoporosis in the outpt setting and aggressively treated SUBJECTIVE: Feels well no problems overnight OBJECTIVE Vitals reviewed: Overall good rate control, blood pressures respirations stable no fever Catalogue Maker, my review: Rate controlled AFib Exam: alert oriented skin warm dry color ok resps not labored lungs clear BSs heart regular abd soft nondistended nontender, bowel sounds present limbs warm, no edema iv site ok Lab data: Haptoglobin pending but other studies to look for possible hemolysis are negative On chemistry creatinine remains elevated at 1.4 and BUN at 30 CPK LDH and AST are all normal Objective: Vital Signs Temp Pulse Resp BP Pulse Ox 36.5 C 70 15 126/88 H 100 05/25/18 07:25 05/25/18 07:25 05/25/18 07:25 05/25/18 07:25 05/25/18 07:25 Laboratory Results 05/24/18 03:40 05/25/18 03:40 05/24/18 05/25/18 05/26/18 06:59 06:59 06:59 Intake Total 1500 780 Output Total 1 Balance 1499 780 PT 27.6 SEC (12.0-15.0) H 05/25/18 03:40 INR 2.74 (0.83-1.16) H 05/25/18 03:40 - Time Spent With Patient Time Spent with Patient: greater than 35 minutes Time Spent with Patient: Greater than 35 minutes spent on this patients care, greater than 50% of time spent counseling, educating, and coordinating care regarding the above mentioned plan. ICD10 Worksheet Patient Problems: Problems Problem Status Onset Cardiomyopathy Acute Complete heart block Acute Heart block Acute
[2018-05-25] MEDS: FUROSEMIDE 20 MG TAB PO SCH (10:11)
[2018-05-25] MEDS: SODIUM FERRIC GLUCONAT/SUCROSE 125 MG in NS 100 ML IV SCH (10:39)
--- NOTE | 2018-05-25 10:53 | PDCARPN ---
Cardiology Progress Note Chief Complaint: Patient reports no complaints. Assessment/Plan: Assessment: 88-year-old male with significant past history that includes CAD with previous PCI of the LAD and RCA, hypertension, hyperlipidemia, nonischemic cardiomyopathy which has normalized with implantation of a Bi V PPM, persistent atrial fibrillation, AI and MR. Recently seen in our office for diastolic heart failure, and found to be in atrial fibrillation. Started on high-dose diuretics , with 20 lb weight loss. Echocardiogram done on 05/14/2018 noting LVEF of 55% with mild LVH, mild RV dilation, moderate left atrial enlargement and mild right atrial enlargement, [id number] MR with mild MAC, mild aortic insufficiency with mild stenosis and moderate sclerosis. [id number] TR, mild PI, mild dilated ascending aorta at 4.0 cm. Patient underwent ROSEMARY cardioversion on 05/17/2018. Pacemaker interrogation on 05/19/2018 demonstrating patient back in atrial fibrillation. Concerning that potential atrial fibrillation led to his diastolic heart failure, patient is being admitted for sotalol loading. 05/25/2018: He reports no chest pain, pressure, or symptoms suggesting of ischemia. Continues cardiac monitoring showing underlying rhythm is atrial fibrillation ventricular paced beat, occasional PVC, but appears to improved since yesterday. 12 lead electrocardiogram done last evening showing JT of 320 milliseconds with JT index 100, acceptable limits. Have discussed with Dr. Rowley, GI regarding anemia. Patient had colonoscopy 2 years ago, recommend upper GI to be done tomorrow, if negative, then capsule endoscopy recommended. He would like patient off anticoagulation for tomorrow's procedure, and defer cardioversion (due to needing to be on full anticoagulation for 30 days postprocedure due to increase CVA risk) until GI workup has been completed. Laboratories today showing BUN of 30, creatinine of 1.4. Plan: 1. Persistent atrial fibrillation: Patient maintains atrial fibrillation, but adequate rate control. 12 lead electrocardiogram last night showing JT of 320 milliseconds, JT index 100, acceptable limits. Continue on sotalol at 80 mg p.o. Q.day. Due to his anemia, and plans for upper GI tomorrow, he will not undergo cardioversion due to the need for him to be on full anticoagulation for 30 days (higher stroke risk after cardioversion). His warfarin will be held, in preparation for his procedure in a.m.. Postprocedure, have recommended that he be started on Eliquis, at least temporarily, due to the ease of starting and stopping the drug if he may need any further procedures for his anemia in comparison to warfarin. Risks and benefits of this medication were explained both to the patient and his , they verbalize understanding. Will plan for him to restart anticoagulation on Eliquis at 5 mg PO twice daily. 2. Coronary artery disease: Patient reports no chest pain pressure or symptoms suggesting of ischemia. Due anemia, will hold aspirin therapy. Secondary risk prevention with statin therapy. 3. Diastolic heart failure: Patient recently had increase of diuretic therapy with 20 lb weight loss. He appears euvolemic on exam today. Creatinine higher than his baseline of 1-1.3 (today 1.5). Yesterday order decrease of Lasix, unfortunately they this was after he was already given higher dose. Will continue on Lasix at 20 mg p.o. Q.day. Will monitor daily weights and I&Os. 4. Microcytic anemia with severe iron deficiency: Plan upper GI to be done tomorrow. If negative, capsule an endoscopy per GI. Iron supplementation per Dr. Garcia. Appreciate both Dr. Rowley and Dr. Garcia consultations. 5. History of nonischemic cardiomyopathy: Corrected with biventricular pacing. Last EF 55% based off of echo 05/14/2018. 6. Hyperlipidemia: Resume patient's home statin dosage. 7. Valvular heart disease: Recent echocardiogram noting moderate MR and mild AI. Patient will have a repeated echocardiogram as an outpatient 04/2019. 8. Dilated ascending aorta, measuring at 4.0 cm, repeat echocardiogram 05/15 for therapeutic monitoring. 9. Hypertension: Blood pressure appears to be well controlled on current medication regime, continue home medications. Monitor adjust as necessary 10. DVT prophylaxis: Patient is on full anticoagulation Liborio hoses have been ordered. 11. Advance directive: Patient reports he is a full code. 05/25/18 10:53 Subjective: He denies of any chest pressure, pain, shortness of breath, lightheadedness, orthopnea, PND, near-syncope or syncopal events. Reviewed/Discussed With: hospitalist, other (Dr. Gannon, Dr. Rowley) Objective: Vital Signs (8 Hrs) Temp Pulse Resp BP Pulse Ox 05/25/18 07:25 36.5 C 70 15 126/88 H 100 05/25/18 04:00 36.5 C 63 16 98/49 L 93 Intake/Output (24 Hrs) 05/24/18 05/25/18 05/26/18 05:59 05:59 05:59 Intake Total 1500 780 Output Total 1 Balance 1499 780 Intake: Oral (ml) 1400 780 IV Infused (ml) 100 Magnesium Sulf 1 gm/ 100 Dextrose 100 ml @ 100 mls /hr IV ONCE ONE Rx#: [id number] Output: Urine (ml) 1 Toilet 1 Other: Weight 86.4 kg Number of Voids Toilet 1 1 Result Diagrams: 05/24/18 03:40 05/25/18 03:40 - Physical Exam Constitutional: WDWN, no apparent distress Ears, Nose, Mouth, Throat: moist mucous membranes Cardiovascular: regular rate and rhythm, no rubs, no gallops, systolic murmur (1 /6 left sternal border), pulses symmetric bilat, No jugular vein distention Peripheral Pulses: 1+: dorsalis-pedis (R), dorsalis-pedis (L), 2+: carotid (R), carotid (L) Respiratory: clear to auscultate bilat, no crackles, no wheezes Gastrointestinal: normoactive bowel sounds, no tenderness, no masses Skin: warm, No no edema Neurologic: AAOx3 Psychiatric: cooperative, interactive, following commands ICD10 Worksheet Patient Problems: Problems Problem Status Onset Cardiomyopathy Acute Complete heart block Acute Heart block Acute
--- NOTE | 2018-05-25 11:44 | CPEKG ---
Test Reason : OPEN Blood Pressure : / mmHG Vent. Rate : 067 BPM Atrial Rate : 000 BPM P-R Int : 055 ms QRS Dur : 124 ms QT Int : 467 ms P-R-T Axes : 000 238 070 degrees QTc Int : 493 ms Afib/flut and V-paced complexes Ventricular ectopy is noted on this ECG Confirmed by Pablo Salas ([id number]) on 05/25/2018 11:44:22 AM Referred By: Pablo Mariscal Confirmed By:Pablo Salas
--- NOTE | 2018-05-25 11:45 | CPEKG ---
Test Reason : OPEN Blood Pressure : / mmHG Vent. Rate : 091 BPM Atrial Rate : 000 BPM P-R Int : 061 ms QRS Dur : 136 ms QT Int : 447 ms P-R-T Axes : 000 237 069 degrees QTc Int : 551 ms Afib/flut and V-paced complexes Confirmed by Pablo Salas ([id number]) on 05/25/2018 11:44:57 AM Referred By: Pablo Mariscal Confirmed By:Pablo Salas
--- NOTE | 2018-05-25 11:53 | CPEKG ---
Test Reason : OPEN Blood Pressure : / mmHG Vent. Rate : 078 BPM Atrial Rate : 000 BPM P-R Int : 046 ms QRS Dur : 128 ms QT Int : 459 ms P-R-T Axes : 000 256 088 degrees QTc Int : 523 ms Ventricular-paced complexes Underlying atrial fib/flutter Confirmed by Pablo Salas ([id number]) on 05/25/2018 11:53:19 AM Referred By: Pablo Mariscal Confirmed By:Pablo Salas
--- NOTE | 2018-05-25 11:55 | CPEKG ---
Test Reason : OPEN Blood Pressure : / mmHG Vent. Rate : 062 BPM Atrial Rate : 117 BPM P-R Int : 077 ms QRS Dur : 139 ms QT Int : 492 ms P-R-T Axes : 000 234 074 degrees QTc Int : 500 ms Ventricular-paced complexes Atrial fib/flutter Unchanged from prior Confirmed by Pablo Salas ([id number]) on 05/25/2018 11:55:22 AM Referred By: Pablo Mariscal Confirmed By:Pablo Salas
[2018-05-25] MEDS: ATORVASTATIN CALCIUM 20 MG TAB PO SCH (17:15)
[2018-05-26 04:30] LABS: INR 1.54 (0.83-1.16); PROTIME(PATIENT) 17.8 SEC (12.0-15.0)
[2018-05-26] MEDS: PANTOPRAZOLE SODIUM 40 MG TAB PO SCH (09:26)
[2018-05-26] MEDS: SOTALOL HCL 80 MG TAB PO SCH (09:26)
--- NOTE | 2018-05-26 10:30 | PDANEPAE ---
ANE History of Present Illness EGD ANE Past Medical History - Cardiovascular History Hx Hypertension: Yes Hx Arrhythmias: Yes Hx Chest Pain: No Hx Coronary Artery / Peripheral Vascular Disease: Yes Hx CHF / Valvular Disease: Yes Hx Palpitations: No Cardiovascular History Comment: CAD s/p stents, atrial fibrillation, CHF improved post Bventricular pacemaker plus medical therapy, moderate MR, mild AI - Pulmonary History Hx COPD: No Hx Asthma/Reactive Airway Disease: No Hx Recent Upper Respiratory Infection: No Hx Oxygen in Use at Home: No Hx Sleep Apnea: No Sleep Apnea Screening Result - Last Documented: Negative - Neurologic History Hx Cerebrovascular Accident: No Hx Seizures: No - Endocrine History Hx Diabetes: No Obesity: mild - Renal History Hx Renal Disorders: Yes Renal History Comment: acute kidney dysfunction - Liver History Hx Hepatic Disorders: No - Neurological & Psychiatric Hx Hx Neurological and Psychiatric Disorders: No - Cancer History Hx Cancer: No - GI History GERD: severe - Other Health History Other Health History: severe anemia - Surgical History Prior Surgeries: none ANE Review of Systems Review of Systems: - Pacemaker Pacemaker Architecture Internship: [employer] Patient History - Allergies Allergies/Adverse Reactions: No Known Allergies Allergy (Unverified 03/04/11 13:24) - Home Medications Home Medications: Aspirin [Aspirin 81mg (*)] 81 mg PO DAILY 06/25/13 [Last Taken 05/23/18] Omeprazole [Prilosec 20 mg] 20 mg PO DAILY 06/25/13 [Last Taken 05/23/18] Simvastatin 40 mg PO DAILY18 06/25/13 [Last Taken 05/22/18] Warfarin Sodium [Coumadin 5MG (*)] 5 mg PO DAILY@18 06/25/13 [Last Taken ] Furosemide [Lasix 20 MG (*)] 40 mg PO DAILY 05/25/17 [Last Taken 05/23/18] Herbals/Supplements -Info Only 1 ea PO DAILY 05/23/18 [Last Taken 05/23/18] - NPO status NPO Since - Liquids (Date): 05/26/18 NPO Since - Liquids (Time): 00:01 NPO Since - Solids (Date): 05/26/18 NPO Since - Solids (Time): 00:01 - Smoking Hx Smoking Status: Never smoked ANE Labs/Vital Signs - Labs Result Diagrams: 05/24/18 03:40 05/26/18 03:15 - Vital Signs Blood Pressure: 121/60 Heart Rate: 60 Respiratory Rate: 14 O2 Sat (%): 91 Height: 182.88 cm Weight: 87.8 kg ANE Physical Exam - Airway Neck exam: FROM Mallampati Score: Class 2 - Pulmonary Pulmonary: clear to auscultation - Cardiovascular Cardiovascular: regular rate and rhythym - ASA Status ASA Status: III ANE Anesthesia Plan Anesthesia Plan: GA with mask
[2018-05-26] MEDS ORDERED: PROPOFOL 200 MG/20 ML VIAL ONE (10:56)
[2018-05-26] MEDS ORDERED: fentaNYL 100 MCG/2 ML INJ IVP PRN (11:13)
[2018-05-26] MEDS ORDERED: NALOXONE HCL 0.4 MG/ML INJ IVP PRN (11:13)
--- NOTE | 2018-05-26 11:22 | GIREPORT ---
[facility] Surgical Services - Endoscopy Department Patient Name: Chapincito Ventura Procedure Date: 05/26/2018 10:58 AM Patient Type: Inpatient Attending MD/ ER Physician: Peyman Rowley MD Procedure: Upper GI endoscopy Indications: Iron deficiency anemia, Esophageal reflux, Saucedo's esophagus Providers: Peyman Rowley MD Medicines: Propofol per Anesthesia Complications: No immediate complications. Description of Procedure: After obtaining informed consent, the endoscope was passed under direct vision. Throughout the procedure, the patient's blood pressure, pulse, and oxygen saturations were monitored continuously. The Endoscope was intro duced through the mouth, and advanced to the second part of duodenum. [facility] er GI endoscopy was accomplished without difficulty. The patient tolerated th e procedure well. Findings: The Z-line was irregular and was found 40 cm from the incisors. Irregular Z line at 40 cm c/w patients know Saucedo's. Small islands of ectopic mucosa above irregular zline. A small hiatal hernia was present. A single 8 mm sessile polyp with no stigmata of recent bleeding was fou nd in the gastric body. Biopsies were taken with a cold forceps for histology . The entire examined stomach was normal. The examined duodenum was normal. Biopsies for histology were taken wit h a cold forceps for evaluation of celiac disease. Estimated Blood Loss: Estimated blood loss: none. Post Op Diagnosis: - Z-line irregular, 40 cm from the incisors. - Small hiatal hernia. - A single gastric polyp. Biopsied. - Normal stomach. - Normal examined duodenum. Biopsied. Recommendation: - Await pathology results. - Resume previous diet. - Follow an antireflux regimen. - Use Protonix (pantoprazole) 40 mg PO daily. - No source of anemia identified. If duodenal biopsies are negative for Celiac disease would recommend outpatient VCE. - Colonoscopy 05/11, diverticulosis and SSA - Can resume anticoagulation tomorrow - Will sign off, please call with further questions - Thank you for allowing me to participate in the care of your patient. Attending Participation: I personally performed the entire procedure. Peyman Rowley MD Peyman Rowley MD 05/26/2018 11:21:54 AM This report has been signed electronicallySttemi Rowley MD Number of Addenda: 0 Note Initiated On: 05/26/2018 10:58 AM [email or web address]
--- NOTE | 2018-05-26 11:27 | POSTANESTH ---
Post Anesthetic Evaluation Cardiovascular Status: Similar to Pre-Op Cond Respiratory Status: Normal, Stable Level of Consciousness/Mental Status: Can Participate in Eval Pain Control: Adequate, Prn Tx Ordered Nausea/Vomiting Control: Adequate, Prn Tx Ordered Complications Possibly Related to Anesthesia: None Noted
[2018-05-26 12:04] VITALS: BP 105/63
[2018-05-26] MEDS: SODIUM FERRIC GLUCONAT/SUCROSE 125 MG in NS 100 ML IV SCH (13:00)
--- NOTE | 2018-05-26 13:00 | HOSPPROG ---
Hospitalist Progress Note Assessment/Plan: DIAGNOSES: * Microcytic anemia with Severe Iron Deficiency -nothing found on EGD, last colonoscopy 2 years ago -status post IV treatment here * atrial fibrillation -currently rate controlled * Acute Kidney Injury * diastolic heart CHF -currently compensated but just recently had decompensation was diuresed 18 lbs as an outpt * moderate valvular heart disese * DM2, not currently on treatment, current glucose 160s -Hg A1c 7.6 * osteoporosis by definition, with fractures * gait instability with some orthostatic sxs I reviewed with Dr. Gorge Gannon. The patient has no acute findings or cause of bleeding in his EGD. He will need set up for a capsule endoscopy gastroenterology clinic. Will not be doing cardioversion here at this time. He is stable for discharge to home Will discharge him on oral iron therapy The patient will need careful monitoring of iron levels over time to make sure that he is maintaining adequate iron saturation for marrow and cardiac function. We may not be able to find the cause of his iron deficiency, in which case I would have some suspicion for possibility of malabsorption SUBJECTIVE: Feels well no problems overnight OBJECTIVE Vitals reviewed: Overall good rate control, blood pressures respirations stable no fever Exam: alert oriented skin warm dry color ok resps not labored lungs clear BSs heart regular abd soft nondistended nontender, bowel sounds present limbs warm, no edema Objective: Vital Signs Temp Pulse Resp BP Pulse Ox 36.4 C 63 20 105/63 100 05/26/18 12:00 05/26/18 12:01 05/26/18 12:01 05/26/18 12:01 05/26/18 12:01 Laboratory Results 05/24/18 03:40 05/26/18 03:15 05/25/18 05/26/18 05/27/18 06:59 06:59 06:59 Intake Total 780 1120 400 Output Total 450 Balance 780 670 400 PT 17.8 SEC (12.0-15.0) H 05/26/18 03:15 INR 1.54 (0.83-1.16) H 05/26/18 03:15 ICD10 Worksheet Patient Problems: Problems Problem Status Onset Cardiomyopathy Acute Complete heart block Acute Heart block Acute
[2018-05-26] MEDS: FUROSEMIDE 20 MG TAB PO SCH (13:07)
--- NOTE | 2018-05-26 14:29 | ASMTDCNOTE ---
Case Management Discharge Discharge Order Complete? Answers: Yes Patient to Obtain Answers: Independently Medications Transportation Arranged Answers: Family/Friends Family Notified Answers: Yes Notes: , Ana Discharge Comments Notes: Patient to d/c home today independently with his Ana. No further needs. Date Signed: 05/26/2018 02:28 PM Electronically Signed By:Shanel Romero LCSW
--- NOTE | 2018-05-26 14:29 | ASMTLACE ---
LACE Length of stay for Answers: 3 days current admission Acuity / Level of Answers: Yes Care: Did the patient have an inpatient admission? Comorbidities - select Answers: Coronary Artery Disease all that apply Other Notes: AFib; HTN # of Emergency department Answers: 0 visits in the last 6 months Score: 9 Date Signed: 05/26/2018 02:29 PM Electronically Signed By:Shanel Romero LCSW
--- NOTE | 2018-05-26 14:32 | ASDISCHSUM ---
Discharge Information Plan Status:Home with No Needs Medically Cleared to Leave:05/26/2018 Discharge Date:05/26/2018 CM D/C Disposition:Home, Routine, Self-Care ADT D/C Disposition:Home, Routine, Self-Care Projected Discharge Date:05/26/2018 Transportation at D/C:Family Discharge Delay Reason: Follow-Up Date:05/26/2018 Discharge Slot:2 - 12:01 pm - 18:00 pm Final Diagnosis:Microcytic anemia, AFIB, acute kidney injury, CHF Placement Information Patient Contact Information Contact Name:LEO Relationship: Address:[address] City:[place] Alternate Phone: [facility]/Zip Code:[place] [address] Email: Financial Information Financial Class:Medicare Primary Plan Desc:MEDICARE INPATIENT Primary Plan Number:[id number] Secondary Plan Desc:[employer]/MDR SUPPLEMENT Secondary Plan Number:[id number] Assessment Information LACE LACE Length of stay for Answers: 3 days current admission Acuity / Level of Answers: Yes Care: Did the patient have an inpatient admission? Comorbidities - select Answers: Coronary Artery Disease all that apply Other Notes: AFib; HTN # of Emergency department Answers: 0 visits in the last 6 months Score: 9 Date Signed: 05/26/2018 02:29 PM Electronically Signed By:Shanel Romero LCSW [facility] CM Progress Note CM Note CM Note Notes: Spoke with pt and of 55 years in the room. Pt admitted for persistent a Fib and Sotolol load observation. Pt will likely discharge independently and he and are comfortable with this plan. No therapies ordered at this time. CM to follow. d/c Plan: Independent Date Signed: 05/24/2018 02:17 PM Electronically Signed By:Fannie Khan Case Management Discharge Plan Note Case Management Discharge Discharge Order Complete? Answers: Yes Patient to Obtain Answers: Independently Medications Transportation Arranged Answers: Family/Friends Family Notified Answers: Yes Notes: Ana Discharge Comments Notes: Patient to d/c home today independently with his Ana. No further needs. Date Signed: 05/26/2018 02:28 PM Electronically Signed By:Shanel Romero LCSW [facility] CM Progress Note CM Note CM Note Notes: Patient discharging home independently today. No further needs. Date Signed: 05/26/2018 02:30 PM Electronically Signed By:Shanel Romero LCSW Intervention Information Intervention Type:*Incorrect Registration Date of Service:05/23/2018 04:41 PM Patient Type:Observation Staff Member:PARAG Clark Courtney Hours: Discipline: Severity: Comment: Intervention Type:*IM-Signed Date of Service:05/24/2018 03:41 PM Patient Type:Inpatient Staff Member:Meena Alaniz Hours: Discipline: Severity: Comment:
--- NOTE | 2018-05-27 05:14 | GDS ---
[f rep st] DISCHARGE SUMMARY INDICATION FOR ADMISSION: Atrial fibrillation and diastolic heart failure. Plan for sotalol loading. DIAGNOSES AT TIME OF DISCHARGE: 1. Atrial fibrillation. 2. Coronary artery disease with history of percutaneous coronary intervention to the left anterior descending artery and right coronary artery. 3. Hypertension. 4. Hyperlipidemia. 5. Nonischemic cardiomyopathy with normalization of left ventricular function status post biventricular pacemaker. 6. Aortic insufficiency. 7. Mitral regurgitation. 8. Iron deficiency anemia. MEDICATIONS AT TIME OF DISCHARGE: 1. Sotalol 80 mg p.o. b.i.d. 2. Lasix 20 mg daily. 3. Eliquis 2.5 mg p.o. b.i.d. to be started May 27, 2018 with the morning dose. 4. Simvastatin 40 mg daily. 5. Iron sulfate 325 mg daily. 6. Protonix 40 mg daily. MEDICATIONS DISCONTINUED DURING THIS HOSPITALIZATION: Warfarin, Prilosec, aspirin, and furosemide 40 mg daily. HOSPITAL COURSE: The patient is a pleasant 88-year-old gentleman who was recently diagnosed with diastolic congestive heart failure and found to be in atrial fibrillation. He underwent direct current cardioversion with transesophageal echocardiogram on May 17, 2018. On followup visit on May 23 , he was back in atrial fibrillation. Given concerns that his atrial fibrillation led to diastolic heart failure, the patient was being admitted for sotalol loading. He tolerated sotalol well. JT index of 100, which is within acceptable limits. He has had greater than 4 doses of sotalol without problems. He remains primarily paced with underlying rhythm of atrial fibrillation. He was found to have new onset of microcytic anemia with severe iron deficiency. He was consulted by Dr. Rowley of Gastroenterology as well as Dr. Garcia. The patient underwent an upper endoscopy earlier this morning, which demonstrated a small hiatal hernia, a single gastric polyp which was biopsied, a normal stomach and a normal examined duodenum, which was also biopsied. Pathology results are pending. He was also started on intravenous iron infusions during the course of his hospitalization, which he has tolerated well. At the time of this dictation, he is feeling well. He remains in a rhythm that is primarily paced with underlying atrial fibrillation, vital signs are stable. He is stable for discharge home. PHYSICAL EXAMINATION: VITAL SIGNS: Blood pressure currently 105/63, heart rate of 63 and paced, oxygen saturation 100% on room air, respiratory rate of 20. GENERAL: He is awake, alert, oriented, and appropriate in no apparent distress. NECK: There is no evidence of JVP or carotid bruits. LUNGS: Clear to auscultation bilaterally. CARDIAC: S1, S2. Rhythm is currently regular. ABDOMEN: Soft, nontender. EXTREMITIES: There is no evidence of cyanosis, clubbing, or edema. LABORATORY DATA AT TIME OF DISCHARGE: Hemoglobin of 8.5, hematocrit of 30.4, MCV from May 23 of 67.5. Basic metabolic panel from today demonstrates a sodium of 139, potassium 4.3, chloride of 104, bicarb 23, BUN 36, creatinine 1.6. Hemoglobin A1c of 7.6. INR today is 1.54. INR had been greater than 2 on all previous days during the course of his hospitalization. PLAN AT TIME OF DISCHARGE: 1. The patient will be discharged home on sotalol 80 mg p.o. b.i.d. 2. The patient will be discharged on Eliquis 2.5 mg p.o. b.i.d. based on creatinine of 1.6, age of 88, and weight of 87.8 kg. The patient will be started on iron sulfate 325 mg once daily. The patient will be started on Protonix 40 mg daily. He will continue on Lasix 20 mg daily and home medicines of simvastatin 40 mg daily. 3. The patient will follow up with Dr. Pablo Mariscal or Lauren Lauren the next 1-2 weeks. 4. The patient will follow up with Gastroenterology for capsule endoscopy. 5. The patient will follow up with his primary care physician for consideration of reinitiating medicines for diabetes. 6. We will consider ROSEMARY guided cardioversion if he requires cardioversion before the next 30 days. If he completes 30 days of anticoagulation, would consider cardioversion without ROSEMARY. Over 45 minutes have been spent putting together this discharge. Patient instructions have been reviewed in detail, primarily medication list. All questions have been answered. /[id number]/MODL MTDD
[2018-05-27] MEDS ORDERED: FERROUS SULFATE 325 MG TAB PO SCH (09:00)
[2018-05-27] MEDS ORDERED: APIXABAN 2.5 MG TAB PO SCH (09:00)
--- NOTE | 2018-05-28 05:52 | CPEKG ---
Test Reason : sotalol dosing Blood Pressure : / mmHG Vent. Rate : 063 BPM Atrial Rate : 063 BPM P-R Int : 147 ms QRS Dur : 136 ms QT Int : 509 ms P-R-T Axes : 040 237 081 degrees QTc Int : 522 ms Atrial-ventricular dual-paced rhythm Confirmed by Jaguar Del Castillo ([id number]) on 05/28/2018 5:52:29 AM Referred By: Pablo Mariscal Confirmed By:Jaguar Del Castillo
== END 2018-05-26 14:58 | disposition home or self-care (01) | DRG 309 ==
LOC: F2W 16:06 → OBSVTOIN 16:35
PROVIDERS: ADMIT Internal Medicine Cardiovascular Disease; ATTEND Internal Medicine Cardiovascular Disease
PROC: 3E033RZ Introduction of Antiarrhythmic into Peripheral Vein, Percutaneous Approach (ICD-10-PCS; principal; 2018-05-23)
PROC: 0DB68ZX Excision of Stomach, Via Natural or Artificial Opening Endoscopic, Diagnostic (ICD-10-PCS; 2018-05-26)
PROC: 0DB98ZX Excision of Duodenum, Via Natural or Artificial Opening Endoscopic, Diagnostic (ICD-10-PCS; 2018-05-26)
DX: I48.1 Persistent atrial fibrillation (principal); I11.0 Hypertensive heart disease with heart failure; I50.30 Unspecified diastolic (congestive) heart failure; D50.9 Iron deficiency anemia, unspecified; N17.9 Acute kidney failure, unspecified; I08.0 Rheumatic disorders of both mitral and aortic valves; I25.10 Atherosclerotic heart disease of native coronary artery without angina pectoris; E11.9 Type 2 diabetes mellitus without complications; K22.70 Barrett's esophagus without dysplasia; K44.9 Diaphragmatic hernia without obstruction or gangrene; R26.89 Other abnormalities of gait and mobility; E78.5 Hyperlipidemia, unspecified; Z79.01 Long term (current) use of anticoagulants; Z95.0 Presence of cardiac pacemaker; Z95.5 Presence of coronary angioplasty implant and graft; Z91.81 History of falling
CPT/HCPCS: 83010-90; J0461; J2704; J2916; J3430; J3475